=== PATIENT | female | born 1970 | race Asian ===

== ENCOUNTER 2019-04-01 00:42 | Emergency (ER) | payer OTHER ==
[2019-04-01 00:56] VITALS: BP 109/70; PULSE 56; TEMP 97.8; BMI 21.0
--- NOTE | 2019-04-01 01:04 | PDOC ---
History of Present Illness - General Chief Complaint: Urinary Problem Stated Complaint: BURNING, URINARY FREQUENCY AFTER ANTIBIOTIC FOR UT Time Seen by Provider: 04/01/19 00:56 History Source: Patient - History of Present Illness Initial Comments: 04/01/19 06:43 dysuria s/p abx for uti (was treating a sensitive e coli with nitrofurantoin) Timing/Duration: 24 hours Severity: mild Modifying Factors: worse with: movement Associated Symptoms: denies: fever/chills, nausea/vomiting Past History - Past Medical History Allergies/Adverse Reactions: Allergies Allergy/AdvReac Type Severity Reaction Status Date / Time sulfur [From Sulfur-8] Allergy Verified 04/01/19 00:50 Home Medications: Ambulatory Orders NK [No Known Home Medication] 04/01/19 COPD: No Other medical history: RECENT UTI - Psycho Social/Smoking Cessation Hx Smoking History: Never smoked Have you smoked in the past 12 months: No Information on smoking cessation initiated: No Hx Alcohol Use: No Drug/Substance Use Hx: No Review of Systems - Review of Systems All Other Systems: Reviewed and Negative *Physical Exam - Vital Signs Last Vital Signs Temp Pulse Resp BP Pulse Ox 97.8 F 56 L 16 109/70 100 04/01/19 00:52 04/01/19 00:52 04/01/19 00:52 04/01/19 00:52 04/01/19 00:52 - Physical Exam General Appearance: Yes: Nourished, Appropriately Dressed HEENT: positive: Normal Voice Gastrointestinal/Abdominal: negative: Tender, Distended Lymphatic: negative: Adenopathy Musculoskeletal: positive: Normal Inspection Extremity: positive: Normal Capillary Refill Integumentary: positive: Normal Color Neurologic: positive: Fully Oriented Medical Decision Making - Medical Decision Making 04/01/19 06:45 residual dysuria with nl UA pyridium await culture results Discharge - Discharge Information Problems reviewed: Yes Clinical Impression/Diagnosis: Dysuria Condition: Stable Disposition: HOME - Admission No - Follow up/Referral - Patient Discharge Instructions - Post Discharge Activity
[2019-04-01 02:29] LABS: PH,URINE 5.5 (5.0-8.0); URINE APPEARANCE CLEAR; URINE BILIRUBIN NEGATIVE (NEGATIVE); URINE COLOR YELLOW; URINE GLUCOSE (UA) NEGATIVE (NEGATIVE); URINE KETONE NEGATIVE (NEGATIVE); URINE LEUK ESTERASE NEGATIVE (NEGATIVE); URINE NITRITE NEGATIVE (NEGATIVE); URINE PROTEIN NEGATIVE (NEGATIVE); URINE UROBILINOGEN 0.2 mg/dL (0.2-1.0)
== END 2019-04-01 02:24 | disposition home or self-care (01) ==
LOC: FER 00:42
DX: R30.0 Dysuria (principal); Z88.8 Allergy status to other drugs, medicaments and biological substances
CPT/HCPCS: 81003; 87086; 99281-25